=== PATIENT | female | born 1970 | race Caucasian/White ===

== ENCOUNTER 2024-10-08 13:01 | Outpatient (CLI) | payer BC | END 2024-10-08 13:02 | disposition home or self-care (01) | LOC: CSHDTY/OP 13:01 | PROVIDERS: ATTEND Nurse Practitioner Family | DX: E66.01 Morbid (severe) obesity due to excess calories (principal) | CPT/HCPCS: 97802 ==

== ENCOUNTER 2024-11-05 10:33 | Outpatient (CLI) | payer BC | END 2024-11-05 10:34 | disposition home or self-care (01) | LOC: CSHDTY/OP 10:33 | PROVIDERS: ATTEND Nurse Practitioner Family | DX: E66.01 Morbid (severe) obesity due to excess calories (principal) | CPT/HCPCS: 97802 ==